=== PATIENT | male | born 1945 | race Caucasian/White ===

== ENCOUNTER → 2016-10-07 | Outpatient (CLI) | payer OTHER ==
[2016-06-30 09:12] VITALS: BP 116/53
[2016-10-07 08:19] LABS: ALANINE AMINOTRANSFERASE 33 Units/L (12-78); ALBUMIN 3.6 g/dL (3.4-5.0); ALKALINE PHOSPHATASE 59 Units/L (46-116); ASPARTATE AMINO TRANSFERASE 20 Units/L (15-37); BLOOD UREA NITROGEN 21 mg/dL (7-18); CALCIUM 8.5 mg/dL (8.5-10.1); CARBON DIOXIDE 27.1 mmol/L (21-32); CHLORIDE 106 mmol/L (98-107); CHOL/HDL RATIO 6.5 (0.0-5.0); CHOLESTEROL 142 mg/dL (0-200); COR NA(FOR HYPERGLY) 145 mmol/L (136-145); CREATININE 1.33 mg/dL (0.70-1.30); GLUCOSE 167 mg/dL (65-99); HDL CHOLESTEROL 22 mg/dL (40-60); SODIUM 143 mmol/L (136-145); TOTAL PROTEIN 7.4 g/dL (6.4-8.2); TRIGLYCERIDES 230 mg/dL (0-150); eGFR BLACK RACES > 60 (>60); eGFR NON BLACK RACES 56 (>60)
[2016-10-07 08:22] LABS: BASOPHILS % (AUTO) 0.5 % (0.2-1.0); EOSINOPHILS # (AUTO) 0.1 x10^3/uL (0.0-0.2); EOSINOPHILS % (AUTO) 2.3 % (0.9-2.9); HEMATOCRIT 42.8 % (42.0-54.0); HEMOGLOBIN 14.7 g/dL (13.5-18.0); LYMPHOCYTES # (AUTO) 1.7 X10^3/uL (1.3-2.9); LYMPHOCYTES % (AUTO) 30.8 % (21.0-51.0); MEAN CORPUSCULAR HEMOGLOBIN 30.8 pg (27.0-34.0); MEAN CORPUSCULAR HGB CONC 34.3 g/dL (33.0-35.0); MEAN CORPUSCULAR VOLUME 89.9 fL (80.0-100.0); MEAN PLATELET VOLUME 9.1 fL (7.4-11.0); MONOCYTES # (AUTO) 0.5 x10^3/uL (0.3-0.8); MONOCYTES % (AUTO) 8.8 % (0.0-13.0); NEUTROPHILS # (AUTO) 3.2 x10^3/uL (2.2-4.8); NEUTROPHILS % (AUTO) 57.6 % (42.0-75.0); PLATELET COUNT 163 X10^3/uL (150.0-450.0); RED BLOOD COUNT 4.76 X10^6/uL (4.7-6.0); RED CELL DISTRIBUTION WIDTH 14.1 % (11.6-16.5); WHITE BLOOD COUNT 5.5 X10^3/uL (3.6-10.0)
== END ==
LOC: LAB 07:35
PROVIDERS: ATTEND Internal Medicine Cardiovascular Disease
DX: E78.4 Other hyperlipidemia (principal); I65.22 Occlusion and stenosis of left carotid artery
CPT/HCPCS: 36415; 80048; 80061; 80076; 85025

== ENCOUNTER 2019-12-17 13:13 | Inpatient (IN) ==
[2019-12-17 13:19] VITALS: BMI 28.5
--- NOTE | 2019-12-17 13:25 | DR.EXTPAIN ---
HPI - Time seen Time seen: 13:23 - PCP Primary Care Physician: fercho - Complaint/Symptoms Chief Complaint Doctor Comments: Patient is complaining of cold,cough, fever, Chest pain when he cough for the past four days getting progressively worst. 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 He wore a mask and got back home three days ago and went to his doctor and they gave him a shot and put him on antibiotics but his cough continues. States he is a patient of Dr. Bonds and denies tobacco or alcohol use. States she has been having diarrhea for the past three days. He has been wheezing and using his inhalers. States he do not know if he has been exposed to the virus. Chief Complaint:: pt stated he thinks he has the flu or a cold. his pcp gave him antiobiotcs 2 days ago. body aches, fever, couging and short of breath - Nurses notes reviewed Nurses Notes Review: Yes - Source History Provided: Patient - Mode of arrival Mode of Arrival: Ambulatory - Timing Onset of Chief Complaint: 12/14/19 - Context History of: Arthritis - Associated signs and symptoms Associated Signs and Symptoms: None, Fever, Cough, Shortness of Breath PMH - PMH Past Medical History: Yes Past Medical History: CA, Hypertension, Diabetes Past Surgical History: Yes Surgical History: Angioplasty/Stents, Appendectomy, CABG/Valve Surgery - Family History History of Family Medical Conditions: Yes Family Medical History: Diabetes Mellitus, CA, Hypertension - Social History Does patient currently use any type of tobacco product: No Have you used tobacco products in the last 12 months: No Type of Tobacco Use: None Does any household member use tobacco: No Alcohol Use: None Do you use any recreational Drugs:: No Lives With: Family Lives Where: Home - Travel Risk Coronavirus risk:travel/contact w/high risk person: Yes Has patient experienced Coronavirus symptoms: Yes Coronavirus symptoms experienced: Fever, Coughing, Shortness of Breath - infectious screening In the last 2 months have you had wt loss of >10#?: NO Have you had fever, night sweats or hemotysis?: No Have you traveled outside the country in the last 6 months?: No Isolation: Standard ROS - Review of Systems Constitutional: No Symptoms Reported, Fever Eyes: No Symptoms Reported ENTM: No Symptoms Reported Respiratoy: No Symptoms Reported, Non-Productive Cough, Dry Cough, Short of Breath, Wheezing Cardiovascular: No Symptoms Reported, Chest Pain Gastrointestinal/Abdominal: No Symptoms Reported, Diarrhea, Nausea Genitourinary: No Symptoms Reported. negative: See HPI, Discharge, Dysuria, Frequency, Hematuria, Pain, Bleeding, Other Neurological: No Symptoms Reported Musculoskeletal: No Symptoms Reported Integumentary: No Symptoms Reported Hematologic/Lymphatic: No Symptoms Reported. negative: See HPI, Anemia, Blood Clots, Easy Bleeding, Easy Bruising, Swollen Glands, Lymphadenopathy, Other Endocrine: No Symptoms Reported Psychiatric: No Symptoms Reported. negative: See HPI, Anxiety, Depression, Hallucinations, Excessive crying, Suicidal, Other PE - General Limitations: No Limitations General Appearance: Alert, In Distress (moderate) - Head Head Exam: Normal Inspection, Atraumatic, Normocephalic - Eyes Eye exam: Normal Appearance, PERRL, EOMI. negative: Scleral Icterus, Conjunctival Injection, Nystagmus, Miosis, Mydrasis, Periorbital Swelling, Periorbital Tenderness, Other - ENT ENT Exam: Normal Exam, Normal Oropharynx, Normal External Ear Exam, Mucous Membranes Moist, TM's Normal Bilaterally - Neck Neck Exam: Normal Inspection, Full ROM, Trachea Midline - Chest Chest Inspection: Normal Inspection, Symmetric Chest Wall Rise - Respiratory Respiratory Exam: Normal Lung Sounds Bilat, Prolonged Expiratory Phase Respiratory Exam: Bilateral Clear to Auscultation - Cardiovascular Cardiovascular Exam: Regular Rate, Normal Rhythm, Irregular Rhythm - Abdominal Exam Abdominal Exam: Normal Inspection, Normal Bowel Sounds, Soft. negative: Distention, Tenderness, Guarding, Rebound, Rigidity, Dimnished Bowel Sounds, Hyperactive Bowel Sounds, Hypoactive Bowel Sounds, Organomegaly, Trauma, Incision, Ascites, Mass, Bruit, Pulsatile Mass, Hernia, Other Abdominal Tenderness: negative: RUQ, RLQ, LUQ, LLQ, Epigastrium, Suprapubic, Diffuse, Mild, Moderate, Severe, Other - Extremities Extremities Exam: Normal Inspection, Full ROM, Normal Capillary Refill. negative: Tenderness, Edema, Joint Swelling, Calf Tenderness, Other - Upper Extremities Shoulder Exam: Normal Inspection, Full ROM. negative: Tenderness, Swelling, Abrasion, Laceration, Ecchymosis, Deformity, Crepitus, Dislocation, Erythema, Tenderness over AC Joint, Other Arm Exam: Normal Inspection, Full ROM. negative: Tenderness, Swelling, Abrasion, Laceration, Ecchymosis, Deformity, Crepitus, Erythema, Other Elbow Exam: Normal Inspection, Full ROM. negative: Tenderness, Swelling, Abrasion, Laceration, Ecchymosis, Deformity, Crepitus, Dislocation, Erythema, Effusion, Pain w/ pronation, Pain w/ Spuination, Tenderness over Radial Head, Other Forearm Exam: Normal Inspection, Full ROM. negative: Tenderness, Swelling, Asim kasey, Laceration, Ecchymosis, Deformity, Crepitus, Erythema, Dislocation, Other Hand Exam: Normal Inspection, Full ROM. negative: Tenderness, Swelling, Abrasion, Laceration, Ecchymosis, Skin Avulsion, Deformity, Crepitus, Erythema, Dislocation, Amputation, Nail Avulsion, Subungual Hematoma, Other Neuromotor Exam: Normal Exam Neurosensory Exam: Normal Exam Upper Ext. Vascular Exam: Capillary Refill (normal), Radial Pulse (normal) - Lower Extremities Hip/Pelvis Exam: Normal Inspection, Full ROM. negative: Tenderness, Swelling, Abrasion, Laceration, Ecchymosis, Deformity, Crepitus, Dislocation, Erythema, External Rotation, Internal Rotation, Shortening, Pelvis Stable, Other Upper Leg Exam: Normal Inspection, Full ROM. negative: Tenderness, Swelling, Abrasion, Laceration, Ecchymosis, Deformity, Crepitus, Dislocation, Erythema, Other Knee Exam: Normal Inspection, Full ROM. negative: Tenderness, Swelling, Abrasion, Laceration, Ecchymosis, Deformity, Crepitus, Dislocation, Erythema, Effusion, Anterior Drawer Sign, Posterior Draw Sign, Pain with Valgus, Laxity with Valgus, Pain with Varus, Knee Extension Intact, Other Lower Leg Exam: Normal Inspection, Full ROM. negative: Tenderness, Swelling, Abrasion, Laceration, Deformity, Ecchymosis, Crepitus, Dislocation, Erythema, Palpable Cord, Homans' Sign, Achilles Tendon Intact, Other Ankle Exam: Normal Inspection, Full ROM. negative: Tenderness, Swelling, Abrasion, Laceration, Ecchymosis, Deformity, Crepitus, Dislocation, Erythema, Tenderness over talofibular lig, Anterior Draw Sign, Other Foot/Toe Exam: Normal Inspection, Full ROM. negative: Tenderness, Swelling, A brasion, Laceration, Ecchymosis, Deformity, Crepitus, Dislocation, Erythema, Amputation, Puncture Wound, Foreign Body, Calcaneal Tenderness, Nail Avulsion, Other Neurovascular/Tendon Exam: Normal Capillary Refill Gait Exam: Observed and Normal - Back Back Exam: Normal Inspection, Full ROM. negative: Tenderness, (R) CVA Tenderness, (L) CVA Tenderness, Muscle Spasm, Paraspinal Tenderness, Vertebral Tenderness, Rashes, (R) Sciatic Notch Tenderness, (L) Sciatic Notch Tendern, (R) Straight Leg Raise, (L) Straight Leg Raise, Other - Neurological Neurological Exam: Alert, Oriented X3, CN II-XII Intact, Normal Gait, Reflexes Normal - Psychiatric Psychiatric Exam: Normal Affect, Normal Mood. negative: Depressed, Agitated, Anxious, Flat Affect, Manic, Homicidal Ideation, Suicidal Ideation, Other - Skin Skin Exam: Warm, Dry, Intact, Normal Color Type of Lesion: negative: Rash, Abscess, Laceration, Foreign Body, Bite/Sting, Abrasion, Other Distribution: Generalized. negative: Involves Palms/Soles, Head, Face, Neck, Thorax, Chest, Back, Abdomen, Genitals, LUE, LLE, RUE, RLE, Other Description: negative: Size, Tenderness, Erythematous, Swelling, Macular, Papular, Vesicular, Blisters, Cofluent, Bullous, Petechial, Purpuric, Urticarial, Crusting, Discharge, Fluctuant, Indurated, Other - Vital Signs Vitals: Temperature 98.8 F Pulse Rate 63 Respiratory Rate 20 Blood Pressure [Right Arm] 116/53 Blood Pressure [Left Arm] 133/61 Blood Pressure 168/74 O2 Sat by Pulse Oximetry 99 Course - Reevaluation 1st: Improved - Consultation Called: 18:03 Call Returned: 18:03 (Dr. Bonds to admit) - Education/Counseling Education/Counseling: Patient, Family Educated On: Treatment, Diagnosis, Needs for Follow Up ROR - Labs Reviewed Laboratory Results Reviewed?: Yes (All labs and x-ray results reviewed and discusseed with patient) Result Diagrams: 12/17/19 13:38 12/17/19 13:38 - XRAY XRAY Interpreted by: Radiologist (CXR: No acute cardiopulmonary changes noted) - EKG Rate: 78 [place]: Normal Rhythm: NSR Block: None, RBBB Hypertrophy: None ST: Nonsp - Labs Reviewed Laboratory: WBC 4.4 X10^3/uL (3.6-10.0) 12/17/19 13:38 RBC 3.87 X10^6/uL (4.7-6.0) L 12/17/19 13:38 Hgb 11.8 g/dL (13.5-18.0) L 12/17/19 13:38 Hct 34.6 % (42.0-54.0) L 12/17/19 13:38 MCV 89.3 fL (80.0-100.0) 12/17/19 13:38 MCH 30.4 pg (27.0-34.0) 12/17/19 13:38 MCHC 34.1 g/dL (33.0-35.0) 12/17/19 13:38 RDW 14.7 % (11.6-16.5) 12/17/19 13:38 Plt Count 122 X10^3/uL (150.0-450.0) L 12/17/19 13:38 MPV 8.5 fL (7.4-11.0) 12/17/19 13:38 Neut % (Auto) 66.8 % (42.0-75.0) 12/17/19 13:38 Lymph % (Auto) 23.4 % (21.0-51.0) 12/17/19 13:38 [place] % (Auto) 9.6 % (0.0-13.0) 12/17/19 13:38 Eos % (Auto) 0.0 % (0.9-2.9) L 12/17/19 13:38 Baso % (Auto) 0.2 % (0.2-1.0) 12/17/19 13:38 Neut # (Auto) 3.0 x10^3/uL (2.2-4.8) 12/17/19 13:38 Lymph # (Auto) 1.0 X10^3/uL (1.3-2.9) L 12/17/19 13:38 Bay # (Auto) 0.4 x10^3/uL (0.3-0.8) 12/17/19 13:38 Eos # (Auto) 0.0 x10^3/uL (0.0-0.2) 12/17/19 13:38 Baso # (Auto) 0.0 X10^3/uL (0.0-0.1) 12/17/19 13:38 Absolute Nucleated RBC 0.0 /100WBC 12/17/19 13:38 PT 14.2 SECONDS (11.8-14.3) 12/17/19 13:38 INR Target Range - 12/17/19 13:38 INR 1.13 (0.8-1.3) 12/17/19 13:38 APTT 41.1 SECONDS (22.9-36.5) H 12/17/19 13:38 PTT Comment - 12/17/19 13:38 Fibrinogen 560 mg/dL (239-489) H 12/17/19 13:38 D-Dimer 901 ng/mL (0-400) H* 12/17/19 13:38 Sodium 134 mmol/L (136-145) L 12/17/19 13:38 Corrected Sodium 137 mmol/L (136-145) 12/17/19 13:38 Potassium 2.9 mmol/L (3.5-5.1) L* 12/17/19 13:38 Chloride 102 mmol/L (98-107) 12/17/19 13:38 Carbon Dioxide 23.3 mmol/L (21-32) 12/17/19 13:38 BUN 10 mg/dL (7-18) 12/17/19 13:38 Creatinine 1.14 mg/dL (0.70-1.30) 12/17/19 13:38 Est GFR (MDRD) Af Amer > 60 (>60) 12/17/19 13:38 Est GFR (MDRD) Non-Af > 60 (>60) 12/17/19 13:38 Glucose 222 mg/dL (65-99) H 12/17/19 13:38 Calcium 7.9 mg/dL (8.5-10.1) L 12/17/19 13:38 Corrected Calcium 8.6 mg/dL (8.5-10.1) 12/17/19 13:38 Magnesium 1.8 mg/dL (1.7-2.9) 12/17/19 13:38 Total Bilirubin 0.90 mg/dL (0.2-1.0) 12/17/19 13:38 AST 19 Units/L (15-37) 12/17/19 13:38 ALT 25 Units/L (12-78) 12/17/19 13:38 Alkaline Phosphatase 55 Units/L (46-116) 12/17/19 13:38 Creatine Kinase 84 Units/L (39-308) 12/17/19 13:38 CK-MB (CK-2) < 1.0 ng/mL (0-4.0) 12/17/19 13:38 CK/CKMB % Calc 1.2 % (<4) 12/17/19 13:38 Troponin I 0.03 ng/mL (0-1.5) 12/17/19 13:38 C-Reactive Protein 42.90 mg/L (0-3.0) H 12/17/19 13:38 B-Natriuretic Peptide 1020 pg/mL (0-79) H* 12/17/19 13:38 Total Protein 6.7 g/dL (6.4-8.2) 12/17/19 13:38 Albumin 3.1 g/dL (3.4-5.0) L 12/17/19 13:38 Globulin 3.6 g/dL (2.5-4.5) 12/17/19 13:38 Albumin/Globulin Ratio 0.9 Ratio (1.1-2.1) L 12/17/19 13:38 Influenza Type A Ag Negative-presumptive (NEGATIVE) 12/17/19 15:50 Influenza Type B Ag Negative-presumptive (NEGATIVE) 12/17/19 15:50 SARS-CoV-2 (PCR) Positive (NEGATIVE) A 12/17/19 16:00 - XRAY Xray Findings: CTA chest: No evidence of pulmonary thromboembolism within the main,lobar or proximal segmental pumonary artery. Cardiomegaly with pumonary vasculature Moderate upper lobe parasepta and centrilobular emphysematous changes. (NILAM DANIEL) Opioid - Opioid Risk Tool Age (Jorge box if 16-45): No History of Preadolescent Sexual Abuse: No Total: 0 Total Score Risk Category: Low Risk - Diagnosis Discharge Problem: COVID-19 virus infection, Pleural effusion, Hypokalemia Congestive heart failure (CHF) Qualifiers: Heart failure chronicity: unspecified Cholelithiasis Qualifiers: Cholecystitis presence: without cholecystitis Emphysema of lung Qualifiers: Emphysema type: unspecified Qualified Code(s): J43.9 - Emphysema, unspecified Diabetes mellitus Qualifiers: Diabetes mellitus type: type 2 Diabetes mellitus complication status: with hyperglycemia - Discharge Plan Disposition: ADMITTED INPATIENT Condition: Stable - Follow ups/Referrals Follow ups/Referrals: Pramod Bonds [Primary Care Provider] - 3 days - Instructions
[2019-12-17 14:37] LABS: BASOPHILS % (AUTO) 0.2 % (0.2-1.0); HEMATOCRIT 34.6 % (42.0-54.0); HEMOGLOBIN 11.8 g/dL (13.5-18.0); LYMPHOCYTES % (AUTO) 23.4 % (21.0-51.0); MEAN CORPUSCULAR HEMOGLOBIN 30.4 pg (27.0-34.0); MEAN CORPUSCULAR HGB CONC 34.1 g/dL (33.0-35.0); MEAN CORPUSCULAR VOLUME 89.3 fL (80.0-100.0); MEAN PLATELET VOLUME 8.5 fL (7.4-11.0); MONOCYTES # (AUTO) 0.4 x10^3/uL (0.3-0.8); MONOCYTES % (AUTO) 9.6 % (0.0-13.0); NEUTROPHILS % (AUTO) 66.8 % (42.0-75.0); PLATELET COUNT 122 X10^3/uL (150.0-450.0); RED BLOOD COUNT 3.87 X10^6/uL (4.7-6.0); RED CELL DISTRIBUTION WIDTH 14.7 % (11.6-16.5); WHITE BLOOD COUNT 4.4 X10^3/uL (3.6-10.0)
[2019-12-17] MEDS ORDERED: TYLENOL 500 MG TAB EXTRA STRENGTH PO ONE ×2 (14:38→15:06)
[2019-12-17 14:59] LABS: ALANINE AMINOTRANSFERASE 25 Units/L (12-78); ALBUMIN 3.1 g/dL (3.4-5.0); ALKALINE PHOSPHATASE 55 Units/L (46-116); ASPARTATE AMINO TRANSFERASE 19 Units/L (15-37); BLOOD UREA NITROGEN 10 mg/dL (7-18); CALCIUM 7.9 mg/dL (8.5-10.1); CARBON DIOXIDE 23.3 mmol/L (21-32); CHLORIDE 102 mmol/L (98-107); CKMB % 1.2 % (<4); COR CA(FOR HYPOALB) 8.6 mg/dL (8.5-10.1); COR NA(FOR HYPERGLY) 137 mmol/L (136-145); CREATINE KINASE 84 Units/L (39-308); CREATINE KINASE MB < 1.0 ng/mL (0-4.0); CREATININE 1.14 mg/dL (0.70-1.30); MAGNESIUM 1.8 mg/dL (1.7-2.9); SODIUM 134 mmol/L (136-145); TOTAL PROTEIN 6.7 g/dL (6.4-8.2); TROPONIN I 0.03 ng/mL (0-1.5); eGFR NON BLACK RACES > 60 (>60)
[2019-12-17] MEDS ORDERED: KLOR-CON PO PRN ×2 (15:05→22:09)
--- NOTE | 2019-12-17 15:05 | RAD ---
HISTORYFever and coughSTUDYPortable AP [id number]/30/2017, report onlyFINDINGSUpper normal heart size. The lungs are clear without definite consolidation, edema, pneumothorax. No pleural fluid seen.IMPRESSIONNo acute chest findings on portable AP examination.Electronically signed by: DRE DEL ANGEL (Dec 17, 2019 15:04:40)
[2019-12-17] MEDS ORDERED: KLOR-CON ONE (15:12)
[2019-12-17] MEDS ORDERED: ROCEPHIN VIAL 1 GRAM 1 G in NS 100 ML IV + SPIKE MINIBAG* 100 ML IV ONE (15:21)
[2019-12-17] MEDS ORDERED: ROCEPHIN VIAL 1 GRAM ONE (15:37)
[2019-12-17] MEDS ORDERED: NS 100 ML IV + SPIKE MINIBAG* 100 ML IV ONE (15:37)
--- NOTE | 2019-12-17 17:47 | CT ---
HISTORYAbnormal D-dimer and shortness of breathSTUDYCTA OF THE CHEST WITH CONTRASTCOMPARISONChest x-ray of same dayTECHNIQUEAxial CT was performed from the thoracic inlet to the upper abdomen with an arterial phase IV contrast bolus. The axial sequences are reconstructed with multiplaner reformats;volume rendered MIP and/or 3D reconstruction was generated from the original axial dataset.FINDINGSQuality of the exam is mildly degraded as result of motion artifact. Within limitations of the exam, there are no centrally occlusive filling defects associated with the main pulmonary artery, lobar or proximal segmental pulmonary artery branches fulfilling criteria for an acute pulmonary thromboembolism. Atherosclerotic calcifications are noted within the wall of the abdominal aorta as well as the thoracic aorta. There is a also evident coronary atherosclerosis in a patient who is undergone a previous bypass procedure. The heart is mildly enlarged overall and there is a prominent pericardial fat pad. No significant pericardial effusion or lymphadenopathy. There are trace dependent bilateral pleural effusions. Moderate centrilobular and paraseptal emphysematous changes are observed with upper lobe predominance. There is biapical pleural parenchymal scarring. No organized airspace consolidation is identified. There is small amount of subsegmental linear scarring or atelectasis within the lingula. Sub solid nodular opacity within the right upper lobe on image 30 measures approximately 6 mm in maximum diameter. There is a secondary sub solid ground-glass opacity in a peribronchial distribution in the right upper lobe on image 35, at least 2 in number, measuring 5-6 mm each. There is a small amount of subpleural atelectasis within the left lower lobe approximating the small dependent pleural fluid collection.Review of the coronal reconstruction demonstrates mild interlobular septal thickening with a few dependent Marcelino B-lines suspected.Cholelithiasis is observed without cholecystitis. There is a small amount of reflux of contrast into the IVC in the setting of right-sided heart dysfunction. The adrenal glands are symmetric in size and overall morphology. A few scattered colonic diverticula are observed along the partially imaged left colon. Evaluation of the osseous structures reveals no aggressive lytic or blastic bony lesions. No acute osseous abnormalities are identified.IMPRESSIONNo evidence of pulmonary thromboembolism within the main, lobar or proximal segmental pulmonary artery branches. Evaluation of the distal branches of the pulmonary artery tributaries is limited by respiratory motion artifact.Cardiomegaly with accentuation of the central pulmonary vasculature, mild interlobular septal thickening and a few dependent Marcelino B-lines indicating mild interstitial edema. Small bilateral pleural effusions are also observedLocalized right upper lobe peribronchial 6 mm ground-glass opacities, which may be associated with edema or related to bronchiolitis. A six-month follow-up may be performed to confirm resolution.Moderate upper lobe paraseptal and centrilobular emphysematous changesCholelithiasis without secondary features of acute cholecystitisOther chronic, postsurgical and incidental findings as discussed above.Radiation dose reduction was achieved through individualized adjustment of kVP and/or mA, through adaptive statistical iterative reconstruction, and/or through automated tube current modulation.Electronically signed by: LAURA ZUNIGA (Dec 17, 2019 17:45:39)
[2019-12-17] MEDS ORDERED: REMDESIVIR (INVESTIGATIONAL DRUG GS-5734) IV ONE (18:10)
[2019-12-17] MEDS ORDERED: ASCORBIC ACID INJ MULTI-DOSE VIAL IM SCH (18:15)
[2019-12-17] MEDS ORDERED: CORTEF ONE (20:07)
[2019-12-17] MEDS ORDERED: NS 100 ML IV 100 ML IV ONE (20:07)
[2019-12-17] MEDS: ZINC SULFATE PO SCH (20:20)
[2019-12-17] MEDS: NS 1000 ML 1,000 ML IV SCH (20:20)
[2019-12-17] MEDS: LOVENOX INJ 30 MG SYR SC SCH (20:20)
[2019-12-17] MEDS: PLAQUENIL PO SCH (20:20)
[2019-12-17] MEDS: CORTEF PO SCH (20:21)
[2019-12-17] MEDS: VITAMIN A PO SCH ×2 (20:22→20:37)
[2019-12-17] MEDS: THIAMINE HCL INJ IM SCH (20:37)
[2019-12-17] MEDS: PULMICORT NEB TX 0.5 MG NEB SCH (21:43)
[2019-12-17] MEDS ORDERED: POTASSIUM CHL 40 MEQ/NS 0.45% 500 ML IV PRN (22:09)
[2019-12-17] MEDS ORDERED: K-RIDER 10 MEQ/NS 100 ML 10 MEQ/100 ML BAG IV PRN (22:09)
[2019-12-17] MEDS ORDERED: MICRO K EXTEN CAP 10 MEQ PO PRN (22:09)
[2019-12-17] MEDS ORDERED: MAGNESIUM SULFATE 1 GRAM/100 mL PREMIX 1 GM/100 ML BAG IV PRN (22:09)
[2019-12-17] MEDS ORDERED: POTASSIUM CHL 60 MEQ/NS 0.45% 500 ML IV PRN (22:09)
[2019-12-17] MEDS ORDERED: POTASSIUM CHLORIDE LIQ 20 MEQ UDC PO PRN (22:09)
[2019-12-18] MEDS: XOPENEX 1.25 MG/3 ML NEBULE NEB SCH ×5 (00:45→18:44)
[2019-12-18] MEDS: K-DUR TAB 20 MEQ PO PRN ×2 (01:11→06:01)
[2019-12-18] MEDS: ASCORBIC ACID INJ MULTI-DOSE VIAL 1,500 MG in NS 100 ML IV 100 ML IV SCH ×2 (02:24→08:20)
[2019-12-18] MEDS ORDERED: TYLENOL 325 MG TAB PO PRN (02:25)
[2019-12-18] MEDS ORDERED: TYLENOL 325 MG TAB PO ONE (03:03)
[2019-12-18] MEDS ORDERED: ROBITUSSIN DM PO PRN (03:54)
[2019-12-18 05:35] LABS: BASOPHILS % (AUTO) 0.3 % (0.2-1.0); HEMOGLOBIN 11.7 g/dL (13.5-18.0); LYMPHOCYTES # (AUTO) 0.6 X10^3/uL (1.3-2.9); LYMPHOCYTES % (AUTO) 13.5 % (21.0-51.0); MEAN CORPUSCULAR HEMOGLOBIN 30.8 pg (27.0-34.0); MEAN CORPUSCULAR HGB CONC 34.5 g/dL (33.0-35.0); MEAN CORPUSCULAR VOLUME 89.4 fL (80.0-100.0); MEAN PLATELET VOLUME 8.4 fL (7.4-11.0); MONOCYTES # (AUTO) 0.3 x10^3/uL (0.3-0.8); NEUTROPHILS # (AUTO) 3.8 x10^3/uL (2.2-4.8); NEUTROPHILS % (AUTO) 79.2 % (42.0-75.0); PLATELET COUNT 117 X10^3/uL (150.0-450.0); RED CELL DISTRIBUTION WIDTH 14.9 % (11.6-16.5); WHITE BLOOD COUNT 4.7 X10^3/uL (3.6-10.0)
[2019-12-18 05:38] LABS: ALANINE AMINOTRANSFERASE 22 Units/L (12-78); ALBUMIN 2.9 g/dL (3.4-5.0); ALKALINE PHOSPHATASE 53 Units/L (46-116); ASPARTATE AMINO TRANSFERASE 18 Units/L (15-37); BLOOD UREA NITROGEN 10 mg/dL (7-18); CALCIUM 7.6 mg/dL (8.5-10.1); CARBON DIOXIDE 23.6 mmol/L (21-32); CHLORIDE 103 mmol/L (98-107); COR CA(FOR HYPOALB) 8.5 mg/dL (8.5-10.1); COR NA(FOR HYPERGLY) 139 mmol/L (136-145); CREATININE 1.06 mg/dL (0.70-1.30); SODIUM 136 mmol/L (136-145); TOTAL PROTEIN 6.5 g/dL (6.4-8.2); eGFR NON BLACK RACES > 60 (>60)
[2019-12-18] MEDS: HumuLIN R SC PRN ×4 (06:01→20:45)
[2019-12-18 07:57] LABS: ABG BASE EXCESS -2.3 mmol/L (-2.0-2.0); ABG HCO3 21.2 mmol/L (22-26)
[2019-12-18 07:59] LABS: ABG ALLEN TEST POS
[2019-12-18] MEDS ORDERED: ZOFRAN INJ 4 MG VIAL IVP PRN (08:12)
[2019-12-18] MEDS ORDERED: ZOFRAN INJ 4 MG VIAL ONE (08:15)
[2019-12-18] MEDS: LOVENOX INJ 30 MG SYR SC SCH ×2 (08:20→20:44)
[2019-12-18] MEDS: ZINC SULFATE PO SCH (08:21)
[2019-12-18] MEDS ORDERED: CORTEF ONE (08:43)
[2019-12-18 08:47] LABS: CKMB % 0.8 % (<4); CREATINE KINASE MB 1.3 ng/mL (0-4.0); TROPONIN I 0.07 ng/mL (0-1.5)
[2019-12-18] MEDS: PULMICORT NEB TX 0.5 MG NEB SCH ×2 (08:50→20:00)
[2019-12-18] MEDS ORDERED: VITAMIN D (1.25MG) PO SCH (09:00)
--- NOTE | 2019-12-18 09:06 | DR.H&P ---
H&P - History & Physical for Day of: H&P Date: 12/17/19 - Chief Complaint Chief Complaint: COLD, COUGH, FEVER, DIARRHEA, SHORTNESS OF BREATH, BODY ACHES, AND CHEST PAIN X 4 DAYS - History of Present Illness History of Present Illness: IS A 74 YEAR OLD PATIENT OF OURS WHO PRESENTED TO THE ER WITH COMPLAINTS OF COLD, COUGH, FEVER, DIARRHEA, SHORTNESS OF BREATH, BODY ACHES, AND CHEST PAIN X 4 DAYS THAT HAS PROGRESSIVELY GOTTEN WORSE. HE REPORTS WHEEZING. HE WAS SEEN IN OUR OFFICE THREE DAYS AGO AND WAS TREATED FOR ACUTE BRONCHITIS. HE WAS GIVEN NEBULIZER TREATMENTS AND CEFDINIR. HE WAS ALSO GIVEN A ROCEPHIN INJECTION IN THE OFFICE. HE DENIES IMPROVEMENT IN SYMPTOMS SINCE THEN. HIS PMH INCLUDES: PA, HTN, DIABETES, STENTS, CAD, APPENDECTOMY, CABG. ON ARRIVAL TO THE ER, VITALS WERE 101.9-82-18-90%-168/74. LABS WERE OBTAINED. ABNORMAL LAB VALUES INCLUDE THE FOLLOWING: RBC 3.87, HGB 11.8, HCT 34.6, PLT COUNT 122, PTT 41.1, FIBRINOGEN 560, D-DIMER 901, SODIUM 134, POTASSIUM 2.9, GLUCOSE 222, CALCIUM 7.9, CRP 42.90, BNP 1020, ALBUMIN 3.1. INFLUENZA NEGATIVE. COVID-19 POSITIVE. CARDIAC ENZYMES WITHIN NORMAL LIMITS. AN ABG WAS OBTAINED AND REVEALED: PH 7.430, PC02 32.0, P02 48.0, HC03 21.2, 02 SATURATION 85.0, BASE EXCESS -2.3, FI02 50.0. BLOOD CULTURES WERE SET UP. EKG REVEALED: SINUS RHYTHM WITH HR 78. A CHEST XRAY WAS OBTAINED AND REVEALED: NO ACUTE CHEST FINDINGS ON PORTABLE AP EXAMINATION. A CHEST CTA WAS OBTAINED AND REVEALED: No evidence of pulmonary thromboembolism within the main, lobar or proximal segmental pulmonary artery branches. Evaluation of the distal branches of the pulmonary artery tributaries is limited by respiratory motion artifact. Cardiomegaly with accentuation of the central pulmonary vasculature, mild interlobular septal thickening and a few dependent Marcelino B-lines indicating mild interstitial edema. Small bilateral pleural effusions are also observed. Localized right upper lobe peribronchial 6 mm ground-glass opacities, which may be associated with edema or related to bronchiolitis. A six-month follow-up may be performed to confirm resolution. Moderate upper lobe paraseptal and centrilobular emphysematous changes. Cholelithiasis without secondary features of acute cholecystitis. Other chronic, postsurgical and incidental findings as discussed above. HE WAS GIVEN REMDESIVIR 200MG IV X 1, ROCEPHIN 1G IV X 1 IN THE ER. HE WAS ADMITTED FOR FURTHER EVALUATION AND TREATMENT OF COVID-19, PNEUMONIA, CHF, DIABETES, AND HYPOKALEMIA. HE WAS STARTED ON NS AT KVO, LEVAQUIN 500MG IV DAILY, REMDESIVIR 100MG IV DAILY, PLAQUENIL 200MG PO BID, ROBITUSSIN DM 10ML PO Q4H PRN, LOVENOX 30MG SC BID, PULMICORT NEBS BID, XOPENEX NEBS Q6H, ZOFRAN 4MG IV Q6H PRN, HUMULIN R SLIDING SCALE, AND THE POTASSIUM AND MAGNESIUM PROTOCOLS. TODAY, WE WILL ADMINSTER A DOSE OF ACTEMRA AND START SOLU-MEDROL 40MG IV Q8H. OTHERWISE, WE PLAN TO FOLLOW UP WITH AM LABS AND CONTINUE TO MONITOR. - Past Medical History Past Medical History: Coronary Artery Disease, Diabetes, Hypertension, PA - Past Surgical History Surgical History: Appendectomy, CABG/Valve Surgery - Family History Family Medical History: Hypertension - Social History Does patient currently use any type of tobacco product: No Have you used tobacco products in the last 12 months: No Type of Tobacco Use: None How many years tobacco product used: 30 Does any household member use tobacco: No Alcohol Use: None Drug Use: None - Medications Home Medications: No Known Drug Allergies Allergy (Verified 12/17/19 13:13) CONTINUE taking the following medications glipizide 10 mg PO BID 12/17/19 [History] - Review of Systems Constitutional: Fever, Chills, Weakness, Malaise Eyes: No Symptoms Reported ENT: No Symptoms Reported Respiratory: See HPI, Cough, Shortness of Breath, SOB with Excertion, Wheezing Cardiovascular: No Symptoms Reported Gastrointestinal: Diarrhea Genitourinary: No Symptoms Reported Musculoskeletal: No Symptoms Reported Skin: No Symptoms Reported Neurological: Weakness - Physical Exam Vital Signs: Temperature 98.5 F Pulse Rate [Left] 66 Pulse Rate 86 Respiratory Rate 33 Blood Pressure [Right Arm] 116/53 Blood Pressure [Left Arm] 132/72 Blood Pressure 194/79 O2 Sat by Pulse Oximetry 93 Oriented: Normal Eyes: Normal Ear: Normal Nose: Normal Throat: Normal Respiratory: Wheezes Throughout Cardiovascular: Normal : Normal Auscultation: Bowel Sounds: Normal Palpation: Normal Tenderness: Normal Skin: Normal Musculoskeletal: Normal Psychiatric: Normal Mood Description: Calm Affect: Normal Speech Pattern: Clear - Assessment/Plan (1) COVID-19 virus infection Status: Acute Plan: ADMIT, NS AT KVO, LEVAQUIN 500MG IV DAILY, REMDESIVIR 100MG IV DAILY, SOLU-MEDROL 40MG IV Q8H, ACTEMRA X 1 DOSE, PLAQUENIL 200MG PO BID, ROBITUSSIN DM 10ML PO Q4H PRN, LOVENOX 30MG SC BID, PULMICORT NEBS BID, XOPENEX NEBS Q6H, ZOFRAN 4MG IV Q6H PRN, HUMULIN R SLIDING SCALE, AND THE POTASSIUM AND MAGNESIUM PROTOCOLS (2) Pneumonia Qualifiers: Pneumonia type: due to unspecified organism Laterality: bilateral Lung location: unspecified part of lung Qualified Code(s): J18.9 - Pneumonia, unspecified organism Status: Acute (3) Hypokalemia Status: Acute (4) Congestive heart failure (CHF) Qualifiers: Heart failure type: unspecified Heart failure chronicity: unspecified Qualified Code(s): I50.9 - Heart failure, unspecified Status: Chronic (5) Diabetes mellitus Qualifiers: Diabetes mellitus type: type 2 Diabetes mellitus complication status: with hyperglycemia Status: Chronic - Allergies Allergies/Adverse Reactions: Allergies Allergy/AdvReac Type Severity Reaction Status Date / Time No Known Drug Allergies Allergy Verified 12/17/19 13:13
[2019-12-18] MEDS: PLAQUENIL PO SCH ×2 (09:11→20:45)
--- NOTE | 2019-12-18 09:22 | PCM.PROG ---
Progress Note - Progress Note for Day of Date of Exam: 12/18/19 - Subjective Subjective: IS BEING TREATED FOR COVID-19 AND PNEUMONIA. TODAY, SHE IS ALERT, LYING IN BED ON MORNING ROUNDS. SHE CONTINUES TO BE DISORIENTED THIS MORNING. STAFF REPORTS THAT SHE CONTINUES WITH COUGH AND WEAKNESS. THEY REPORT THAT SHE DID HAVE AN EPISODE OF TACHYCARDIA THROUGHOUT THE NIGHT. ON E XAMINATION, HEART IS REGULAR IN RATE AND RHYTHM. BILATERAL LUNGS ARE NOTED WITH SCATTERED WHEEZING THROUGHOUT. ABDOMEN IS ROUND, SOFT, AND NON-TENDER. NORMAL BOWEL SOUNDS ARE NOTED IN ALL QUADRANTS. HER VITALS THIS MORNING ARE: 97.7-62-16-94%-134/65. LABS WERE OBTAINED. ABNORMAL LAB VALUES INCLUDE THE FOLLOWING: HGB 11.9, POTASSIUM 3.4, GLUCOSE 239, CALCIUM 8.4, FERRITIN 536, AST 52, CRP 60.30, TOTAL PRTOEIN 6.3, ALBUMIN 2.1. BLOOD CULTURES ARE PENDING. A CHEST XRAY WAS OBTAINED THIS MORNING AND REVEALED: Mildly worsened multifocal lung infiltrates. SHE IS CURRENTLY RECEIVING 1/2NS AT 75 ML/HR, REMDESIVIR 100 MG IV DAILY, HUMULIN R SLIDING SCALE, DUONEBS QID, PULMICORT BID, TUSSIONEX 5ML PO Q12H, LOVENOX 40MG SC HS, ROBITUSSIN DM 10ML PO QID, HUMULIN R SLIDING SCALE, LEVAQUIN 500MG IV DAILY, SOLU-MEDROL 40MG IV Q8H. WE WILL CONTINUE WITH CURRENT PLAN OF CARE TODAY AND START METOPROLOL XR 12.5MG PO DAILY. OTHERWISE, WE PLAN TO FOLLOW UP WITH AM LABS AND CHEST XRAY AND CONTINUE TO MONITOR. - Past Medical Family Social History Past Med/Fam/Surg Hx: No changes since H&P Allergies: Allergies No Known Drug Allergies Allergy (Verified 12/17/19 13:13) - Review of Systems ROS: No change since H&P - Vital Signs and I&O's Vital Signs: Temperature 98.5 F Pulse Rate [Left] 66 Pulse Rate 94 Respiratory Rate 30 Blood Pressure [Right Arm] 116/53 Blood Pressure [Left Arm] 132/72 Blood Pressure 194/79 O2 Sat by Pulse Oximetry 91 Intake and Output: Intake & Output 12/15/19 12/16/19 12/17/19 12/18/19 11:59 11:59 11:59 11:59 Intake Total 960 / 960 Balance 960 / 960 - Physical Exam Oriented: Normal Eyes: Normal Ear: Normal Nose: Normal Throat: Normal Respiratory: Generalized, Wheezes Cardiovascular: Normal : Normal Auscultation: Bowel Sounds: Normal Palpation: Normal Tenderness: Normal Skin: Normal Musculoskeletal: Normal Psychiatric: Normal Mood Description: Calm Affect: Normal Speech Pattern: Clear - Laboratory and Diagnostics Result Diagrams: 12/18/19 04:36 12/18/19 08:10 Labs: Laboratory WBC 4.7 X10^3/uL (3.6-10.0) 12/18/19 04:36 RBC 3.80 X10^6/uL (4.7-6.0) L 12/18/19 04:36 Hgb 11.7 g/dL (13.5-18.0) L 12/18/19 04:36 Hct 34.0 % (42.0-54.0) L 12/18/19 04:36 MCV 89.4 fL (80.0-100.0) 12/18/19 04:36 MCH 30.8 pg (27.0-34.0) 12/18/19 04:36 MCHC 34.5 g/dL (33.0-35.0) 12/18/19 04:36 RDW 14.9 % (11.6-16.5) 12/18/19 04:36 Plt Count 117 X10^3/uL (150.0-450.0) L 12/18/19 04:36 MPV 8.4 fL (7.4-11.0) 12/18/19 04:36 Neut % (Auto) 79.2 % (42.0-75.0) H 12/18/19 04:36 Lymph % (Auto) 13.5 % (21.0-51.0) L 12/18/19 04:36 [place] % (Auto) 7.0 % (0.0-13.0) 12/18/19 04:36 Eos % (Auto) 0.0 % (0.9-2.9) L 12/18/19 04:36 Baso % (Auto) 0.3 % (0.2-1.0) 12/18/19 04:36 Neut # (Auto) 3.8 x10^3/uL (2.2-4.8) 12/18/19 04:36 Lymph # (Auto) 0.6 X10^3/uL (1.3-2.9) L 12/18/19 04:36 [place] # (Auto) 0.3 x10^3/uL (0.3-0.8) 12/18/19 04:36 Eos # (Auto) 0.0 x10^3/uL (0.0-0.2) 12/18/19 04:36 Baso # (Auto) 0.0 X10^3/uL (0.0-0.1) 12/18/19 04:36 Absolute Nucleated RBC 0.0 /100WBC 12/18/19 04:36 PT 14.2 SECONDS (11.8-14.3) 12/17/19 13:38 INR Target Range - 12/17/19 13:38 INR 1.13 (0.8-1.3) 12/17/19 13:38 APTT 41.1 SECONDS (22.9-36.5) H 12/17/19 13:38 PTT Comment - 12/17/19 13:38 Fibrinogen 560 mg/dL (239-489) H 12/17/19 13:38 D-Dimer 901 ng/mL (0-400) H* 12/17/19 13:38 Sample Site Rrad 12/18/19 07:51 ABG pH 7.430 (7.35-7.45) 12/18/19 07:51 ABG pCO2 32.0 mmHg (35.0-45.0) L 12/18/19 07:51 ABG pO2 48.0 mmHg (80.0-100.0) L* 12/18/19 07:51 ABG HCO3 21.2 mmol/L (22-26) L 12/18/19 07:51 ABG O2 Saturation 85.0 % (90-100) L 12/18/19 07:51 ABG Base Excess -2.3 mmol/L (-2.0-2.0) L 12/18/19 07:51 El Test Pos 12/18/19 07:51 A-a Gradient 269.0 mmHg 12/18/19 07:51 FiO2 50.0 12/18/19 07:51 Blood Gas Comments Osvaldo abg well-mtf 12/18/19 07:51 Sodium 136 mmol/L (136-145) 12/18/19 04:36 Corrected Sodium 139 mmol/L (136-145) 12/18/19 04:36 Potassium 4.0 mmol/L (3.5-5.1) 12/18/19 08:10 Chloride 103 mmol/L (98-107) 12/18/19 04:36 Carbon Dioxide 23.6 mmol/L (21-32) 12/18/19 04:36 BUN 10 mg/dL (7-18) 12/18/19 04:36 Creatinine 1.06 mg/dL (0.70-1.30) 12/18/19 04:36 Est GFR (MDRD) Af Amer > 60 (>60) 12/18/19 04:36 Est GFR (MDRD) Non-Af > 60 (>60) 12/18/19 04:36 Glucose 238 mg/dL (65-99) H 12/18/19 04:36 Calcium 7.6 mg/dL (8.5-10.1) L 12/18/19 04:36 Corrected Calcium 8.5 mg/dL (8.5-10.1) 12/18/19 04:36 Magnesium 2.0 mg/dL (1.7-2.9) 12/17/19 18:46 Total Bilirubin 0.90 mg/dL (0.2-1.0) 12/18/19 04:36 AST 18 Units/L (15-37) 12/18/19 04:36 ALT 22 Units/L (12-78) 12/18/19 04:36 Alkaline Phosphatase 53 Units/L (46-116) 12/18/19 04:36 Creatine Kinase 158 Units/L (39-308) 12/18/19 08:10 CK-MB (CK-2) 1.3 ng/mL (0-4.0) 12/18/19 08:10 CK/CKMB % Calc 0.8 % (<4) 12/18/19 08:10 Troponin I 0.07 ng/mL (0-1.5) 12/18/19 08:10 C-Reactive Protein 42.90 mg/L (0-3.0) H 12/17/19 13:38 B-Natriuretic Peptide 1020 pg/mL (0-79) H* 12/17/19 13:38 Total Protein 6.5 g/dL (6.4-8.2) 12/18/19 04:36 Albumin 2.9 g/dL (3.4-5.0) L 12/18/19 04:36 Globulin 3.6 g/dL (2.5-4.5) 12/18/19 04:36 Albumin/Globulin Ratio 0.8 Ratio (1.1-2.1) L 12/18/19 04:36 Influenza Type A Ag Negative-presumptive (NEGATIVE) 12/17/19 15:50 Influenza Type B Ag Negative-presumptive (NEGATIVE) 12/17/19 15:50 SARS-CoV-2 (PCR) Positive (NEGATIVE) A 12/17/19 16:00 - Plan (1) COVID-19 virus infection Status: Acute Plan: NS AT KVO, LEVAQUIN 500MG IV DAILY, REMDESIVIR 100MG IV DAILY, SOLU-MEDROL 40MG IV Q8H, ACTEMRA X 1 DOSE, PLAQUENIL 200MG PO BID, ROBITUSSIN DM 10ML PO Q4H PRN, LOVENOX 30MG SC BID, PULMICORT NEBS BID, XOPENEX NEBS Q6H, ZOFRAN 4MG IV Q6H PRN, HUMULIN R SLIDING SCALE, AND THE POTASSIUM AND MAGNESIUM PROTOCOLS (2) Pneumonia Status: Acute Qualifiers: Pneumonia type: due to unspecified organism Laterality: bilateral Lung location: unspecified part of lung Qualified Code(s): J18.9 - Pneumonia, unspecified organism (3) Hypokalemia Status: Acute (4) Congestive heart failure (CHF) Status: Chronic Qualifiers: Heart failure type: unspecified Heart failure chronicity: unspecified Qualified Code(s): I50.9 - Heart failure, unspecified (5) Diabetes mellitus Status: Chronic Qualifiers: Diabetes mellitus type: type 2 Diabetes mellitus complication status: with hyperglycemia
[2019-12-18] MEDS: LEVAQUIN PREMIX IV 500 MG 500 MG/100 ML BAG IV SCH (09:36)
[2019-12-18] MEDS: ACTEMRA 400 MG in NS 100 ML IV 80 ML IV NR (10:37)
[2019-12-18] MEDS: SOLU-Medrol 40 MG VIAL IVP SCH ×2 (13:24→21:43)
[2019-12-18 15:06] LABS: CKMB % 0.6 % (<4); CREATINE KINASE MB 1.5 ng/mL (0-4.0); TROPONIN I 0.14 ng/mL (0-1.5)
[2019-12-18] MEDS: REMDESIVIR (INVESTIGATIONAL DRUG GS-5734) 100 MG in NS 250 ML IV 250 ML IV SCH (17:05)
[2019-12-18] MEDS: NS 1000 ML 1,000 ML IV SCH (19:37)
[2019-12-18] MEDS: CORTEF PO SCH (20:08)
[2019-12-18] MEDS: THIAMINE HCL INJ IM SCH (20:08)
[2019-12-18] MEDS: VITAMIN A PO SCH (20:09)
[2019-12-18 20:26] LABS: CKMB % 0.6 % (<4); CREATINE KINASE MB 2.5 ng/mL (0-4.0); TROPONIN I 0.11 ng/mL (0-1.5)
[2019-12-19] MEDS: XOPENEX 1.25 MG/3 ML NEBULE NEB SCH ×4 (00:30→18:00)
[2019-12-19] MEDS: SOLU-Medrol 40 MG VIAL IVP SCH ×2 (05:00→14:28)
[2019-12-19 05:25] LABS: ABG BASE EXCESS -7.4 mmol/L (-2.0-2.0); ABG HCO3 19.7 mmol/L (22-26)
[2019-12-19 05:26] LABS: ABG ALLEN TEST POS
[2019-12-19 05:40] LABS: BASOPHILS % (AUTO) 0.1 % (0.2-1.0); HEMATOCRIT 41.2 % (42.0-54.0); HEMOGLOBIN 13.7 g/dL (13.5-18.0); LYMPHOCYTES # (AUTO) 1.1 X10^3/uL (1.3-2.9); LYMPHOCYTES % (AUTO) 9.5 % (21.0-51.0); MEAN CORPUSCULAR HEMOGLOBIN 30.4 pg (27.0-34.0); MEAN CORPUSCULAR HGB CONC 33.3 g/dL (33.0-35.0); MEAN CORPUSCULAR VOLUME 91.2 fL (80.0-100.0); MONOCYTES # (AUTO) 0.4 x10^3/uL (0.3-0.8); MONOCYTES % (AUTO) 3.2 % (0.0-13.0); NEUTROPHILS # (AUTO) 10.2 x10^3/uL (2.2-4.8); NEUTROPHILS % (AUTO) 87.2 % (42.0-75.0); PLATELET COUNT 166 X10^3/uL (150.0-450.0); RED BLOOD COUNT 4.52 X10^6/uL (4.7-6.0); RED CELL DISTRIBUTION WIDTH 15.4 % (11.6-16.5); WHITE BLOOD COUNT 11.7 X10^3/uL (3.6-10.0)
[2019-12-19] MEDS ORDERED: VERSED ONE ×3 (05:58→16:44)
[2019-12-19] MEDS ORDERED: QUELICIN (OR ANECTINE) ONE (05:58)
[2019-12-19] MEDS ORDERED: NS 250 ML IV 250 ML IV ONE (06:16)
[2019-12-19] MEDS ORDERED: NS 100 ML IV 100 ML IV ONE (06:26)
[2019-12-19 06:28] LABS: ALANINE AMINOTRANSFERASE 30 Units/L (12-78); ALKALINE PHOSPHATASE 59 Units/L (46-116); ASPARTATE AMINO TRANSFERASE 33 Units/L (15-37); BLOOD UREA NITROGEN 19 mg/dL (7-18); CALCIUM 8.5 mg/dL (8.5-10.1); CARBON DIOXIDE 19.7 mmol/L (21-32); CHLORIDE 105 mmol/L (98-107); CKMB % 0.7 % (<4); COR CA(FOR HYPOALB) 9.3 mg/dL (8.5-10.1); COR NA(FOR HYPERGLY) 140 mmol/L (136-145); CREATINE KINASE 570 Units/L (39-308); CREATININE 1.19 mg/dL (0.70-1.30); SODIUM 137 mmol/L (136-145); TOTAL PROTEIN 7.4 g/dL (6.4-8.2); eGFR NON BLACK RACES > 60 (>60)
[2019-12-19 06:29] LABS: CREATINE KINASE MB 4.2 ng/mL (0-4.0)
[2019-12-19] MEDS ORDERED: SALINE 3% 15 ML NEB TX ONE (06:38)
[2019-12-19] MEDS ORDERED: DIPRIVAN PREMIX 1 GRAM IV 1,000 MG/100 ML VIAL ONE (07:07)
[2019-12-19] MEDS ORDERED: DIPRIVAN PREMIX 1 GRAM IV 1,000 MG/100 ML VIAL IV PRN (07:10)
[2019-12-19] MEDS: HumuLIN R SC PRN (07:36)
[2019-12-19 07:43] LABS: ABG BASE EXCESS -10.3 mmol/L (-2.0-2.0); ABG HCO3 19.5 mmol/L (22-26)
--- NOTE | 2019-12-19 07:50 | RAD ---
HISTORYSEVERE SOBSTUDYCHEST, 1 VIEWCOMPARISONChest film December 17, 2019FINDINGSThe trachea is midline. An endotracheal tube is in place with the tip in good position about 4 cm above the mariann. The cardiac silhouette is unremarkable in size for portable film but there is bilateral dense central left greater than right perihilar alveolar infiltrates most consistent with pulmonary edema. Pneumonia could not be excluded. These infiltrates are new from December 17, 2019 no effusion is observed.. The lungs are clear without focal infiltrate or effusion. The bony thorax is unremarkable. There are sternotomy wires present and surgical clips at the left hilum.IMPRESSIONNew bilateral left greater than right perihilar alveolar infiltrates most consistent with pulmonary edema. Pneumonia could not be excluded. The heart size is not enlarged and there are no effusions. Recommend radiographic follow-up.ET tube is in good position.Electronically signed by: MATTHEW MATHEW (Dec 19, 2019 07:49:32)
[2019-12-19 08:22] LABS: CKMB % 0.7 % (<4); TROPONIN I 0.18 ng/mL (0-1.5)
[2019-12-19 08:23] LABS: CREATINE KINASE MB 4.4 ng/mL (0-4.0)
[2019-12-19] MEDS ORDERED: VITAMIN A PO SCH (09:00)
[2019-12-19] MEDS ORDERED: VITAMIN D3 125 mcg (5,000 UNITS) PO SCH (09:00)
[2019-12-19] MEDS: PULMICORT NEB TX 0.5 MG NEB SCH (09:40)
[2019-12-19] MEDS: LEVAQUIN PREMIX IV 500 MG 500 MG/100 ML BAG IV SCH (09:48)
[2019-12-19] MEDS: LOVENOX INJ 30 MG SYR SC SCH (09:49)
[2019-12-19] MEDS: ACTEMRA 400 MG in NS 100 ML IV 80 ML IV NR (10:32)
[2019-12-19] MEDS: PLAQUENIL PO SCH (10:33)
[2019-12-19] MEDS ORDERED: VERSED 100 MG in NS 100 ML IV 80 ML IV PRN (12:28)
[2019-12-19] MEDS ORDERED: PROTONIX INJ 40 MG VIAL IVP SCH (13:00)
[2019-12-19] MEDS: REMDESIVIR (INVESTIGATIONAL DRUG GS-5734) 100 MG in NS 250 ML IV 250 ML IV SCH (18:18)
[2019-12-19 20:34] VITALS: BP 0/0
[2019-12-19] MEDS ORDERED: ARTIFICIAL TEARS DROPS AFFEYE SCH (21:00)
== END 2019-12-19 23:30 | disposition expired | DRG 177 ==
LOC: ER 13:13 → ICU 18:08
PROVIDERS: ADMIT Internal Medicine; ATTEND Internal Medicine
DX: U07.1 COVID-19; I25.10 Atherosclerotic heart disease of native coronary artery without angina pectoris; K80.20 Calculus of gallbladder without cholecystitis without obstruction; E11.65 Type 2 diabetes mellitus with hyperglycemia; E87.6 Hypokalemia; I50.9 Heart failure, unspecified; Z66 Do not resuscitate; R94.31 Abnormal electrocardiogram [ECG] [EKG]; J12.89 Other viral pneumonia; J43.9 Emphysema, unspecified; R07.89 Other chest pain; Z79.01 Long term (current) use of anticoagulants; I11.0 Hypertensive heart disease with heart failure; R06.02 Shortness of breath
CPT/HCPCS: 31500; 36415; 36591; 36600; 71010; 71045; 71275; 80053; 82550; 82553; 82728; 82803; 83735; 83880; 84132; 84484; 85025; 85378; 85384; 85610; 85730; 86140; 86850; 86900; 86901; 87040; 87400; 87635; 87804; 93005; 94002; 94640; 94660; 96365; 96367; 96374; 99284; A4216; A4222; A4618; A7030; C9113; J0330; J0696; J1650; J1815; J1956; J2250; J2405; J2704; J2920; J3262; J3411; J3490; J7030; J7050; J7626